=== PATIENT | male | born 1945 | race Caucasian/White ===

== ENCOUNTER → 2020-04-30 | Outpatient (CLI) | payer MEDICARE, OTHER, SELFPAY | END | disposition home or self-care (01) | LOC: MTDU 10:58 | PROVIDERS: PCP Family Medicine; Referring Provider Family Medicine; Visit Provider Family Medicine | DX: R05 Cough (principal); R06.02 Shortness of breath; R19.7 Diarrhea, unspecified; Z20.828 Contact with and (suspected) exposure to other viral communicable diseases | CPT/HCPCS: 87635; C9803; U0003 ==

== ENCOUNTER 2022-08-25 17:11 | Emergency (ER) | payer MEDICARE, OTHER, SELFPAY ==
[2022-08-25 17:13] VITALS: BP 98/59; PULSE 64; RESP 14; TEMP 36.1; O2SAT 95; BMI 28.2
--- NOTE | 2022-08-25 18:25 | EKG12_ITS ---
Test Reason : SYNCOPE Blood Pressure : / mmHG Vent. Rate : 051 BPM Atrial Rate : 051 BPM P-R Int : 156 ms QRS Dur : 088 ms QT Int : 446 ms P-R-T Axes : 050 013 051 degrees QTc Int : 411 ms Sinus bradycardia with sinus arrhythmia Otherwise normal ECG Confirmed by DANGELO BENOIT, VIVIEN ([id number]), scientific publications editor CEDRICK SANTOS ([id number]) on 08/27/2022 6:36:13 AM Referred By: ISAAC Confirmed By:ANTWON PIERSON MD
[2022-08-25 18:36] VITALS: BP 151/129; PULSE 51; RESP 20
[2022-08-25 18:42] VITALS: BP 103/67; BP 122/65; BP 127/58; PULSE 52; PULSE 53; PULSE 63
--- NOTE | 2022-08-25 18:42 | EDS_ITS ---
HPI History of Present Illness Chief Complaint: Syncope Detail of Chief Complaint: Near syncope Informant: patient Onset/Context/Timing Onset: Today Narrative Narrative: Patient presents with a near syncopal episode that occurred a couple hours ago. She states she was in the kitchen when she had gradual onset of lightheadedness and dizziness, felt as if she might pass out. She denies having chest pain or palpitations. She has been on lisinopril for blood pressure control. She recently went from 20 to 30 mg daily for better blood pressure control. In addition to this she is also been having diarrhea and body aches the past 3 days. Patient does bring a log of her blood pressures and pulse rates. It appears that her pulse rate varies between mid 50s and mid 60s. Her systolic blood pressure has been anywhere from 119-150. [facility] Medical History Depression High cholesterol Hypertension Hypothyroidism Allergy/AdvReac Type Severity Reaction Status Date / Time No Known Allergies Allergy Verified 08/25/22 17:13 Social History Smoking Status: Current every day smoker tobacco type: cigarettes ROS ROS ED Constitutional Constitutional ED: Denies chills or fever(s) Eyes Eyes: Denies change in vision or discharge from eye(s) ENT ENT ED: Denies discharge from eye(s), rhinorrhea or sore throat Cardiovascular Cardiovascular: Denies chest pain or palpitations Respiratory/Chest Respiratory/Chest: Denies cough or dyspnea Gastrointestinal Gastrointestinal: Reports diarrhea; Denies abdominal pain, nausea or vomiting Genitourinary Genitourinary ED: Denies dysuria Musculoskeletal Musculoskeletal: Reports myalgias; Denies back pain or extremity pain Integumentary Denies Abrasions or rash Neurologic Neurologic: Reports weakness; Denies headache(s) Psychiatric Psychiatric: Denies anxiety or depression Allergic/Immunologic Allergic/Immunologic ED: Denies lip swelling or urticaria EXAM Physical Exam Const Vital Signs: 08/25/22 17:13 08/25/22 18:36 08/25/22 18:37 Temperature 97 F L Temperature Source Temporal Pulse Rate 64 51 L Pulse Rate [Lying] Pulse Rate [Sitting (for 1 minute prior to obtaining)] Pulse Rate [Standing (for 1 minute prior to obtaining)] Respiratory Rate 14 20 H Respiratory Effort Normal Non-Labored Respiratory Pattern Normal Blood Pressure 98/59 L 151/129 H Blood Pressure [Lying] Blood Pressure [Sitting (for 1 minute prior to obtaining)] Blood Pressure [Standing (for 1 minute prior to obtaining)] Blood Pressure Mean 72 136 Blood Pressure Mean [Lying] Blood Pressure Mean [Sitting (for 1 minute prior to obtaining)] Blood Pressure Mean [Standing (for 1 minute prior to obtaining)] Pulse Ox 95 Oxygen Delivery Method Room Air 08/25/22 18:42 08/25/22 18:57 08/25/22 20:00 Temperature Temperature Source Pulse Rate 57 L Pulse Rate [Lying] 53 L Pulse Rate [Sitting (for 1 minute prior to obtaining)] 52 L Pulse Rate [Standing (for 1 minute prior to obtaining)] 63 Respiratory Rate Respiratory Effort Respiratory Pattern Blood Pressure 125/72 H Blood Pressure [Lying] 122/65 H Blood Pressure [Sitting (for 1 minute prior to obtaining)] 127/58 H Blood Pressure [Standing (for 1 minute prior to obtaining)] 103/67 Blood Pressure Mean 89 Blood Pressure Mean [Lying] 84 Blood Pressure Mean [Sitting (for 1 minute prior to obtaining)] 81 Blood Pressure Mean [Standing (for 1 minute prior to obtaining)] 79 Pulse Ox 97 Oxygen Delivery Method Room Air 08/25/22 21:25 Temperature Temperature Source Pulse Rate 50 L Pulse Rate [Lying] Pulse Rate [Sitting (for 1 minute prior to obtaining)] Pulse Rate [Standing (for 1 minute prior to obtaining)] Respiratory Rate 14 Respiratory Effort Respiratory Pattern Blood Pressure 101/61 Blood Pressure [Lying] Blood Pressure [Sitting (for 1 minute prior to obtaining)] Blood Pressure [Standing (for 1 minute prior to obtaining)] Blood Pressure Mean Blood Pressure Mean [Lying] Blood Pressure Mean [Sitting (for 1 minute prior to obtaining)] Blood Pressure Mean [Standing (for 1 minute prior to obtaining)] Pulse Ox 97 Oxygen Delivery Method Positive well nourished and well developed General Appearance ED: well developed HEENT Reports normocephalic and head/scalp atraumatic Eyes PERRL and EOMs intact bilaterally Neck supple Chest Wall inspection of chest normal and palpation of chest normal Resp normal respiratory effort and clear to auscultation bilaterally Cardio regular rhythm Rate: bradycardia GI normal to inspection, nondistended, normoactive bowel sounds Palpation: soft Extremity normal to inspection Neuro oriented x3 and no sensory deficits noted Neuro Narrative: No focal neurologic deficits. Sensorium / Orientation: alert Motor Exam: strength 5/5 throughout Psych mental status grossly normal Skin no rashes or lesions noted MDM MDM MDM Narrative Medical decision making narrative: Patient given IV fluids. Lab work obtained along with urinalysis. Chest x-ray ordered. Swab for COVID and influenza obtained. Lab Data Attestation: I reviewed the patient's lab results. Labs: Laboratory Results - last 24 hr 08/25/22 08/25/22 08/25/22 18:46 18:50 18:50 WBC 9.6 RBC 5.18 Hgb 16.0 Hct 48.2 MCV 93.1 MCH 30.9 MCHC 33.2 RDW Std Deviation 45.3 H RDW Coeff of Chelle 13.2 Plt Count 250 MPV 9.2 Immature Gran % (Auto) 0.400 Neut % (Auto) 76.8 H Lymph % (Auto) 15.1 L [place] % (Auto) 7.0 Eos % (Auto) 0.5 Baso % (Auto) 0.2 Absolute Neuts (auto) 7.3 Absolute Lymphs (auto) 1.44 Nucleated RBC % 0 Sodium 138 Potassium 4.1 Chloride 104 Carbon Dioxide 30.0 Anion Gap 4 L BUN 35 H Creatinine 1.30 Estim Creat Clear Calc 43.62 Est GFR (MDRD) Af Amer 69 Est GFR (MDRD) Non-Af 57 L BUN/Creatinine Ratio 26.9 H Glucose 122 H Calcium 10.1 Troponin I High Sens 62 Urine Color Urine Clarity Urine pH Ur Specific [place] Urine Protein Urine Glucose (UA) Urine Ketones Urine Occult Blood Urine Nitrite Urine Bilirubin Urine Urobilinogen Ur Leukocyte Esterase Urine RBC Urine WBC Ur Squamous Epith Cells Urine Bacteria Hyaline Casts Urine Mucus POC Glucose 122 H 08/25/22 20:15 WBC RBC Hgb Hct MCV MCH MCHC RDW Std Deviation RDW Coeff of Chelle Plt Count MPV Immature Gran % (Auto) Neut % (Auto) Lymph % (Auto) [place] % (Auto) Eos % (Auto) Baso % (Auto) Absolute Neuts (auto) Absolute Lymphs (auto) Nucleated RBC % Sodium Potassium Chloride Carbon Dioxide Anion Gap BUN Creatinine Estim Creat Clear Calc Est GFR (MDRD) Af Amer Est GFR (MDRD) Non-Af BUN/Creatinine Ratio Glucose Calcium Troponin I High Sens Urine Color Yellow Urine Clarity Clear Urine pH 6.0 Ur Specific [place] 1.015 Urine Protein 30 H Urine Glucose (UA) Normal Urine Ketones Negative Urine Occult Blood Negative Urine Nitrite Negative Urine Bilirubin Negative Urine Urobilinogen Normal Ur Leukocyte Esterase Negative Urine RBC 0 SEEN Urine WBC 0 SEEN Ur Squamous Epith Cells 0-5 SEEN Urine Bacteria 0 SEEN Hyaline Casts 0-5 SEEN Urine Mucus 0 SEEN POC Glucose Radiography Diagnostic Testing: Clinical Impression(s) from Imaging Studies Chest X-Ray 08/25/22 19:15 IMPRESSION: 4 mm nodule in the right lower lobe. Correlation with prior imaging would be helpful if available. Otherwise, please obtain chest CT follow-up. Electronically Signed: Shaheen Martinez MD at 19:38 EST , EKG Initial EKG: Attestation: I personally reviewed and interpreted this EKG as follows: Interpretation: Sinus Bradycardia (Sinus bradycardia 51 bpm with sinus arrhythmia. No acute ischemia.) Treatment and Re-Evaluation Narrative: CBC chemistry studies significant only for slightly elevated BUN at 35. Urinalysis is unremarkable. Chest x-ray per my interpretation reveals no acute findings. Radiology interpretation is reviewed. There is a 4 mm nodule in the left lower lobe. This was discussed with patient she states she has been told about this several years ago. She does voice understanding of need for follow- up. Patient's blood pressures have been stable here now that she has received IV fluids. She was able to get up and ambulate to the restroom and back without difficulty. I believe patient symptoms are likely secondary to low blood pressure from her diarrheal illness as well as adding extra lisinopril to her daily dose. I recommended holding the extra 10 mg of lisinopril until her GI symptoms are resolved and pushing p.o. fluids. Return instructions given. Discharge Plan Triage Chief Complaint: Syncope ED Provider: Kelly Vogel Dx/Rx/DC Orders Clinical Impression: Near syncope, Hypotension, Diarrhea Instructions: ED Hypotension, Orthostatic, ED Near-Fainting, Uncertain Cause Primary Care Provider: Félix Ray Referrals: Félix Ray MD [Primary Care Provider] - 1 Week Disposition Disposition: Home, Self Care Discharge Date/Time: 08/25/22 21:34
[2022-08-25 18:57] VITALS: O2SAT 97
[2022-08-25] MEDS: 0.9% Normal Saline 1,000 ML 1000 ML IV (18:58)
[2022-08-25 19:02] LABS: Absolute Lymphocyte Count 1.44 X10^3/uL (0.83-4.51); Absolute Neutrophil Count 7.3 X10^3/uL (2.0-7.7); Basophil# 0.02 X10^3/uL; Basophil% 0.2 % (0-1); Eosinophil# 0.05 X10^3/uL; Eosinophils% 0.5 % (0-5); Hematocrit 48.2 % (40-54); Lymphocyte # 1.44 X10^3/ul (0.83-4.51); Lymphocyte % 15.1 % (19-41); Mean Corp Hgb Conc 33.2 g/dL (32-36); Mean Corpuscular Hgb 30.9 pg (27.0-32.0); Mean Corpuscular Volume 93.1 fL (80-94); Mean Platelet Vol. 9.2 fl (6.2-12.0); Monocyte# 0.67 X10^3/uL; NRBC Flagged by Analyzer 0 % (0-5); Neutrophil # 7.33 X10^3/uL (2.7-7.7); Neutrophil % 76.8 % (47-70); Platelet Count 250 K/mm3 (150-450); RBC Distribution Width CV 13.2 % (11.6-14.6); RBC Distribution Width SD 45.3 fl (35.1-43.9); Red Blood Count 5.18 M/mm3 (4.6-6.2); White Blood Count 9.6 K/mm3 (4.4-11.0)
[2022-08-25 19:11] LABS: Bedside Glucose 122 mg/dL (74-106)
--- NOTE | 2022-08-25 19:15 | RAD_ITS ---
STUDY: X-RAY CHEST REASON FOR EXAM: Male, 76 years old. cough TECHNIQUE: XR Chest 1 View COMPARISON: None FINDINGS: There is atherosclerotic calcification of the aortic arch with tortuosity. There are diffuse degenerative changes of the visualized thoracic spine. There is degenerative osteoarthritis of the bilateral shoulders. There is no demonstrated pleural abnormality. 4 mm nodule in the right lower lobe. Normal size heart. Normal mediastinum and hubert. Normal visualized pulmonary arteries. There is no demonstrated abnormality of the visualized soft tissue structures of the upper abdomen. RAD/Chest 1 View (Portable) IMPRESSION: 4 mm nodule in the right lower lobe. Correlation with prior imaging would be helpful if available. Otherwise, please obtain chest CT follow-up. Electronically Signed: Shaheen Martinez MD at 19:38 EST ,
[2022-08-25 19:25] LABS: Anion Gap 4 (5-15); BUN 35 mg/dL (7-18); BUN/Creat Ratio 26.9 RATIO (10-20); Calcium,Total 10.1 mg/dL (8.5-10.1); Chloride 104 mmol/L (98-107); EST Glomerular Filtration Rate 57 mL/min (>60); Est Glom Filt Rate - Afr Amer 69 mL/min (>60); Estimated Creatinine Clearance 43.62 ml/min; Glucose 122 mg/dL (74-106); Potassium 4.1 mmol/L (3.5-5.1); Sodium Level 138 mmol/L (136-145); Troponin-I HS 62 pg/mL (3.0-78.0)
[2022-08-25 20:00] VITALS: BP 125/72; PULSE 57
[2022-08-25 20:27] LABS: Bacteria 0 SEEN /hpf (None Seen); Mucous, Urine 0 SEEN /hpf (<or=2+); Red Blood Cells-Urine 0 SEEN /hpf (0-5); White Blood Cells 0 SEEN /hpf (0-5)
[2022-08-25 20:34] LABS: Color, Urine Yellow (Yellow); Glucose, Dipstick Normal (Normal); Ketone-Dipstick Negative (Negative); Leukocyte Esterase-Dipstick Negative /ul (Negative); Nitrite-Dipstick Negative (Negative); Occult Blood-Urine Negative /ul (Negative); Protein-Dipstick 30 mg/dl (Negative); Specific Gravity, Urine 1.015 (1.002-1.030); Urine Bilirubin Dipstick Negative (Negative); Urine Clarity Clear (Clear); Urine Urobilinogen Normal (Normal)
[2022-08-25 20:41] LABS: Hyaline Cast 0-5 SEEN /lpf (0-5)
[2022-08-25] MEDS: 0.9% Normal Saline 1,000 ML 150 ML IV (20:41)
[2022-08-25 20:42] LABS: Squamous Epithelial Cells - UA 0-5 SEEN /hpf (0-5)
[2022-08-25 21:25] VITALS: BP 101/61; PULSE 50; RESP 14; O2SAT 97
== END 2022-08-25 21:34 | disposition home or self-care (01) ==
PROVIDERS: Emergency Provider Emergency Medicine; PCP Family Medicine; Visit Provider Emergency Medicine
DX: R55 Syncope and collapse (principal); I95.9 Hypotension, unspecified; F17.210 Nicotine dependence, cigarettes, uncomplicated; R19.7 Diarrhea, unspecified; E78.00 Pure hypercholesterolemia, unspecified; I10 Essential (primary) hypertension; R42 Dizziness and giddiness
CPT/HCPCS: 71045; 80048; 81001; 82962; 84484; 85025; 87428; 93005; 96360; 96361; 99284; J7030; A4216

== ENCOUNTER 2022-10-07 19:19 | Inpatient (IN) | payer MEDICARE, OTHER, SELFPAY ==
[2022-10-07 19:21] VITALS: BP 131/76; PULSE 60; RESP 14; TEMP 36.1; O2SAT 95; BMI 28.7
--- NOTE | 2022-10-07 20:42 | CT_ITS ---
STUDY: CT BRAIN WITHOUT CONTRAST REASON FOR EXAM: Female, 77 years old. vertigo RADIATION DOSAGE (If Supplied By Facility): CTDIvol = ( 44.99 ) mGy, DLP = ( 779.24 ) mGycm TECHNIQUE: Transaxial CT imaging of the brain was performed without administration of intravenous contrast material. Individualized dose optimization techniques were used for this CT. COMPARISON: No relevant priors. FINDINGS: Normal soft tissue structures. Normal calvarium. Normal size ventricles and extra-axial spaces for the patient''s age. Bilateral white matter microangiopathic ischemic changes of the cerebral hemispheres. Normal basal ganglia and thalami. Normal brainstem. Normal cerebellum. There is no intracranial hemorrhage. There are no findings of an acute ischemic infarction. Normal visualized paranasal sinuses. CT/Brain/Head without Contrast IMPRESSION: Age-related changes of the brain. Electronically Signed: Hernan Leary DO at 21:51 EST ,
--- NOTE | 2022-10-07 20:44 | EX.ED.DYSGE1 ---
HPI History of Present Illness Chief Complaint: Dizziness Narrative Narrative: Patient presents with 4-day history of vertigo and disequilibrium. She feels like if she walks a certain way she will will lean to the right and fall down. She gets worse when she bends down. This is not necessarily worse when she turns her head a certain way. She has no vision changes no weakness. No recent fevers chills. No vision changes or confusion. [facility] Medical History Depression High cholesterol Hypertension Hypothyroidism Home Medications aspirin 81 mg tablet,delayed release 162 mg PO DAILY 10/07/22 [History Last Taken Unknown] atorvastatin 40 mg tablet 40 mg PO DAILY 10/07/22 [History Last Taken Unknown] citalopram 20 mg tablet 20 mg PO DAILY 10/07/22 [History Last Taken Unknown] furosemide 20 mg tablet (Lasix) 20 mg PO DAILY 10/07/22 [History Last Taken Unknown] hydrochlorothiazide 25 mg tablet 25 mg PO DAILY 10/07/22 [History Last Taken Unknown] levothyroxine 25 mcg capsule 25 mcg PO DAILY 10/07/22 [History Last Taken Unknown] lisinopril 10 mg tablet 20 mg PO DAILY 10/07/22 [History Last Taken Unknown] metoprolol tartrate 25 mg tablet 25 mg PO DAILY 10/07/22 [History Last Taken Unknown] Allergy/AdvReac Type Severity Reaction Status Date / Time codeine AdvReac Other Verified 10/07/22 19:21 Social History Smoking Status: Current every day smoker tobacco type: cigarettes ROS ROS ED ROS Narrative Past medical history: Reviewed Medications: Reviewed Social history: Noncontributory Review of systems: All systems negative except as indicated General: No fever Eyes: No visual changes ENT: No upper airway congestion, normal voice Neck: No neck pain Cardiovascular: No chest pain Respiratory: No shortness of breath or cough Gastrointestinal: No abdominal pain, nausea vomiting or diarrhea Genitourinary: No dysuria Musculoskeletal: Denies myalgias no difficulty with ambulation Skin: No rash Neurological: No memory loss, confusion or any focal weakness. Disequilibrium and vertigo as in HPI Psych: No recent behavioral changes Hematologic: No easy bleeding or easy bruising EXAM Physical Exam Narrative Exam Narrative: Physical exam General: Well nourished, Well developed, No Acute Distress Head: Normocephalic, Atraumatic Eyes: Conjunctiva not pale. Pupils are equal and reactive. No saccade. ENT: Moist mucous membranes Neck: Supple, Nontender, No lymphadenopathy Cardiovascular: Regular rate, Regular rhythm Respiratory: No distress, CTA bilaterally Abdomen: Soft, Nontender, Nondistended Back: Nontender, Normal Inspection. Negative for: CVA tenderness Extremities: Nontender, No edema Skin: Normal color, No rash Neurological: Alert, Normal Strength, Normal Sensation. Somewhat abnormal right-sided [id number]. Otherwise normal cerebellar function. Romberg is positive. She could not tolerate ambulating and I did not attempt a gait. Psychological: Normal affect Const Vital Signs: 10/07/22 19:21 10/07/22 21:46 Temperature 97 F L Temperature Source Temporal Pulse Rate 60 54 L Respiratory Rate 14 18 Blood Pressure 131/76 H Blood Pressure Mean 94 Pulse Ox 95 96 Oxygen Delivery Method Room Air Room Air [facility] Lab Data Labs: Laboratory Results - last 24 hr 10/07/22 10/07/22 10/07/22 19:59 19:59 19:59 WBC 7.7 RBC 4.84 Hgb 15.0 Hct 44.9 MCV 92.8 MCH 31.0 MCHC 33.4 RDW Std Deviation 45.5 H RDW Coeff of Chelle 13.4 Plt Count 211 MPV 9.2 Immature Gran % (Auto) 0.300 Neut % (Auto) 72.6 H Lymph % (Auto) 17.7 L [place] % (Auto) 7.8 Eos % (Auto) 1.3 Baso % (Auto) 0.3 Absolute Neuts (auto) 5.6 Absolute Lymphs (auto) 1.37 Nucleated RBC % 0 PT 14.1 INR 1.1 Sodium 141 Potassium 3.6 Chloride 104 Carbon Dioxide 29.0 Anion Gap 8 BUN 23 H Creatinine 0.89 Estim Creat Clear Calc 49.56 Est GFR (MDRD) Af Amer 80 Est GFR (MDRD) Non-Af 66 BUN/Creatinine Ratio 26.0 H Glucose 122 H Calcium 9.8 Total Bilirubin 0.70 AST 17 ALT 17 Alkaline Phosphatase 85 Troponin I High Sens 24 Total Protein 6.7 Albumin 3.5 Globulin 3.2 Albumin/Globulin Ratio 1.1 Urine Color Urine Clarity Urine pH Ur Specific [place] Urine Protein Urine Glucose (UA) Urine Ketones Urine Occult Blood Urine Nitrite Urine Bilirubin Urine Urobilinogen Ur Leukocyte Esterase Urine RBC Urine WBC Ur Squamous Epith Cells Urine Bacteria Urine Mucus 10/07/22 21:16 WBC RBC Hgb Hct MCV MCH MCHC RDW Std Deviation RDW Coeff of Chelle Plt Count MPV Immature Gran % (Auto) Neut % (Auto) Lymph % (Auto) [place] % (Auto) Eos % (Auto) Baso % (Auto) Absolute Neuts (auto) Absolute Lymphs (auto) Nucleated RBC % PT INR Sodium Potassium Chloride Carbon Dioxide Anion Gap BUN Creatinine Estim Creat Clear Calc Est GFR (MDRD) Af Amer Est GFR (MDRD) Non-Af BUN/Creatinine Ratio Glucose Calcium Total Bilirubin AST ALT Alkaline Phosphatase Troponin I High Sens Total Protein Albumin Globulin Albumin/Globulin Ratio Urine Color Yellow Urine Clarity Clear Urine pH 6.0 Ur Specific [place] 1.015 Urine Protein 15 H Urine Glucose (UA) Normal Urine Ketones Negative Urine Occult Blood Negative Urine Nitrite Negative Urine Bilirubin Negative Urine Urobilinogen 1 H Ur Leukocyte Esterase 25 H Urine RBC 0 SEEN Urine WBC 0-5 SEEN Ur Squamous Epith Cells 0-5 SEEN Urine Bacteria 1+ Urine Mucus 0 SEEN Radiography Diagnostic Testing: Clinical Impression(s) from Imaging Studies Brain CT 10/07/22 20:42 IMPRESSION: Age-related changes of the brain. Electronically Signed: Hernan Leary DO at 21:51 EST Reading Location ID and State: [facility] / [place] Tel [phone], Service support , Chest X-Ray 10/07/22 21:27 IMPRESSION: No radiographic evidence of acute cardiopulmonary disease. Electronically Signed: Hernan Leary DO at 21:55 EST , Chest x-ray read by me as normal EKG Initial EKG: Comments: Sinus rhythm with a rate of 55. Normal AL and QTc intervals. No ischemic changes acutely. Interpreted by emergency doctor Treatment and Re-Evaluation Narrative: A. Problems addressed Patient has vertigo. I am worried about a central etiology for her vertigo especially that she has a positive Romberg and she seems to be leaning to the right and slightly abnormal cerebellar function. Her work-up here is unremarkable but will need an inpatient work-up. B. Amount and/or complexity of the data (2 out of 3) 1. CBC, CMP, troponin interpreted by me I talked to the daughter who was in the room 2. Independent interpretation of test Telemetry: Sinus rhythm with a rate of 53 without any ectopy 3. I discussed the patient with hospitalist for admission C. Risk of complications and/or morbidity Differential diagnosis: Central vertigo, peripheral vertigo, disequilibrium, electrolyte abnormalities, medications. None of these are found Discharge Plan Triage Chief Complaint: Dizziness ED Provider: Brad Gallo Dx/Rx/DC Orders Clinical Impression: Vertigo, History of hypertension, Hx of hypercholesterolemia Prescriptions: No Action atorvastatin 40 mg Tablet 40 mg PO DAILY citalopram 20 mg Tablet 20 mg PO DAILY lisinopril 10 mg Tablet 20 mg PO DAILY hydrochlorothiazide 25 mg Tablet 25 mg PO DAILY furosemide [Lasix] 20 mg Tablet 20 mg PO DAILY metoprolol tartrate 25 mg Tablet 25 mg PO DAILY levothyroxine 25 mcg Capsule 25 mcg PO DAILY aspirin [Aspir-81] 81 mg Tablet,Delayed Release (Dr/Ec) 162 mg PO DAILY Primary Care Provider: Félix Ray Referrals: Félix Ray MD [Primary Care Provider] - Disposition Disposition: Acute Care Hospital [facility]
[2022-10-07 20:52] LABS: Absolute Lymphocyte Count 1.37 X10^3/uL (0.83-4.51); Absolute Neutrophil Count 5.6 X10^3/uL (2.0-7.7); Basophil# 0.02 X10^3/uL; Basophil% 0.3 % (0-1); Eosinophils% 1.3 % (0-5); Hematocrit 44.9 % (37-47); Lymphocyte # 1.37 X10^3/ul (0.83-4.51); Lymphocyte % 17.7 % (19-41); Mean Corp Hgb Conc 33.4 g/dL (32-36); Mean Corpuscular Volume 92.8 fL (81-99); Mean Platelet Vol. 9.2 fl (6.2-12.0); Monocyte% 7.8 % (0-10); NRBC Flagged by Analyzer 0 % (0-5); Neutrophil # 5.63 X10^3/uL (2.7-7.7); Neutrophil % 72.6 % (47-70); Platelet Count 211 K/mm3 (150-450); RBC Distribution Width CV 13.4 % (11.6-14.6); RBC Distribution Width SD 45.5 fl (35.1-43.9); Red Blood Count 4.84 M/mm3 (4.2-5.4); White Blood Count 7.7 K/mm3 (4.4-11.0)
[2022-10-07 21:01] LABS: International Normalized Ratio 1.1; Prothrombin Time (Protime)PT. 14.1 SECONDS (11.7-14.9)
[2022-10-07] MEDS: Meclizine HCl 25 MG Tablet PO (21:01)
[2022-10-07 21:09] LABS: ALB/GLOB Ratio 1.1 RATIO (0.9-2.4); AST(SGOT) 17 U/L (15-37); Alanine Aminotransfer ALT/SGPT 17 U/L (13-56); Albumin, Serum 3.5 g/dL (3.2-5.0); Alkaline Phosphatase 85 U/L (45-117); Anion Gap 8 (5-15); BUN 23 mg/dL (7-18); Calcium,Total 9.8 mg/dL (8.5-10.1); Chloride 104 mmol/L (98-107); Creatinine, Serum 0.89 mg/dL (0.55-1.02); EST Glomerular Filtration Rate 66 mL/min (>60); Est Glom Filt Rate - Afr Amer 80 mL/min (>60); Estimated Creatinine Clearance 49.56 ml/min; Globulin 3.2 g/dL (2.2-4.2); Glucose 122 mg/dL (74-106); Potassium 3.6 mmol/L (3.5-5.1); Protein, Total 6.7 g/dL (6.4-8.2); Sodium Level 141 mmol/L (136-145); Troponin-I HS 24 pg/mL (3.0-54.0)
[2022-10-07 21:24] LABS: Mucous, Urine 0 SEEN /hpf (<or=2+); Red Blood Cells-Urine 0 SEEN /hpf (0-5)
--- NOTE | 2022-10-07 21:27 | RAD_ITS ---
INDICATION: weakness EXAMINATION/TECHNIQUE: X-RAY - XR Chest 1 View COMPARISON: August 25, 2022. FINDINGS: LINES/DEVICES: None. LUNGS: No consolidation, edema or effusion. No pneumothorax. MEDIASTINUM AND CARDIOVASCULAR STRUCTURES: Cardiac silhouette not enlarged. Central airways and mediastinal contour are unremarkable. BONES AND SOFT TISSUES: Degenerative vertebral changes. RAD/Chest 1 View (Portable) IMPRESSION: No radiographic evidence of acute cardiopulmonary disease. Electronically Signed: Hernan Leary DO at 21:55 EST ,
[2022-10-07 21:37] LABS: Color, Urine Yellow (Yellow); Glucose, Dipstick Normal (Normal); Ketone-Dipstick Negative (Negative); Leukocyte Esterase-Dipstick 25 /ul (Negative); Nitrite-Dipstick Negative (Negative); Occult Blood-Urine Negative /ul (Negative); Protein-Dipstick 15 mg/dl (Negative); Specific Gravity, Urine 1.015 (1.002-1.030); Urine Bilirubin Dipstick Negative (Negative); Urine Clarity Clear (Clear); Urine Urobilinogen 1 mg/dl (Normal)
[2022-10-07 21:45] LABS: Bacteria 1+ /hpf (None Seen); Squamous Epithelial Cells - UA 0-5 SEEN /hpf (5-10); White Blood Cells 0-5 SEEN /hpf (0-5)
[2022-10-07 21:46] VITALS: PULSE 54; RESP 18; O2SAT 96
[2022-10-07 22:29] VITALS: BP 156/89; PULSE 55; RESP 15; TEMP 36.7; O2SAT 94
[2022-10-08] VITALS (8 sets, daily range): BP systolic 110–149; BP diastolic 49–77; PULSE 52–65; RESP 16–18; TEMP 36.6–37.3; O2SAT 93–94; BMI 28.4
--- NOTE | 2022-10-08 03:29 | MRI_ITS ---
HISTORY: vertigo r/o CVA or other etiology. TECHNIQUE: Multiplanar and multisequence MR images of the brain were obtained before and after the intravenous administration of 15 cc Clariscan. 352 images. COMPARISON: CT prior day. FINDINGS: Motion artifact lowers the sensitivity of the examination. BRAIN PARENCHYMA: Moderate foci and small zones of increased T2 FLAIR signal in the bilateral cerebral white matter and peter. No enhancing lesion in the brain parenchyma. No abnormal focus of restricted diffusion. No acute intracranial hemorrhage identified. CSF SPACES: Mild generalized volume loss. No significant midline shift or other mass effect.No extra-axial fluid collection. VASCULAR SYSTEM: Major intracranial flow voids are maintained. PARANASAL SINUSES AND MASTOID AIR CELLS: No significant air fluid levels. ORBITS: Bilateral lens resections. MRI/Brain W/WO Contrast IMPRESSION: Motion artifact. No evidence for enhancing intracranial mass, acute infarct, or other acute abnormality. Chronic involutional and white matter changes. Electronically Signed: Stephanie Morgan MD at 10:19 EST ,
--- NOTE | 2022-10-08 03:29 | PCM.HP.STD ---
HPI - General General Date of Admission: 10/07/22 Date of Service: 10/07/22 Chief Complaint: Vertigo HPI Narrative BARBARA MI, is a 77 F with a history of hypothyroidism and hypertension who presented to [facility] 10/07 with a 4-day history of vertigo. In the ED lab work-up overall unremarkable however she was noted to have a positive Romberg and was unable to walk given her symptoms that would become somewhat debilitating when she would get up and try to walk. Hospitalist contacted for admission. Evaluated with her and family at bedside. She reports that on Tuesday she woke up and had been having episodes where she would suddenly have the room spinning around her and she began to fall to her right, they lasted variable amounts of time and sometimes would happen when she was sitting down, did not feel lightheaded as well during this times and said it was a different sensation than not. Did not only happen when moving head. Did fall twice over the past week and denies any serious injury, did hit her head on a vacuum 2 days ago and also bruised her tailbone. Has a slight lower occipital headache that she attributes to stress. Denies changes in her vision, no unilateral or new type of headache, no hearing changes, no chest pain or shortness of breath. She noted that symptoms had become more mild over the past 2 days until the evening of presentation when she had a severe episode that caused significant nausea and small emesis. When she had that episode of vomiting she did have some pain that felt like it went from near her chest to her stomach but it resolved after the vomiting resolved and she had no further sensations like that and has no present chest pain. At this time she reports she feels fine when sitting in bed and is only when she stands up that she has debilitating symptoms. Denied any other complaints at this time. When discussing if this is ever happened to her prior to Tuesday she did note that 9 months ago she had several episodes that would last roughly 10 minutes but would go away and were not as severe or as frequent at this time and has not had difficulty in recent months. [facility] Medical History (Updated 10/08/22 @ 03:[address] Maki Anderson MD) Carpal tunnel syndrome on right Depression High cholesterol Hypertension Hypothyroidism Home Medications aspirin 81 mg tablet,delayed release 162 mg PO DAILY Check with primary doctor 10/07/22 [History Last Taken 10/07/22] atorvastatin 40 mg tablet 40 mg PO DAILY Check with primary doctor 10/07/22 [History Last Taken 10/07/22] citalopram 20 mg tablet 20 mg PO DAILY Check with primary doctor 10/07/22 [History Last Taken 10/07/22] furosemide 20 mg tablet (Lasix) 20 mg PO DAILY 10/07/22 [History Last Taken Unknown] hydrochlorothiazide 25 mg tablet 25 mg PO DAILY Check with primary doctor 10/07/22 [History Last Taken 10/07/22] levothyroxine 25 mcg capsule 25 mcg PO DAILY Check with primary doctor 10/07/22 [History Last Taken 10/07/22] lisinopril 10 mg tablet 20 mg PO DAILY Check with primary doctor 10/07/22 [History Last Taken 10/07/22] metoprolol tartrate 25 mg tablet 25 mg PO BID Check with primary doctor 10/07/22 [History Last Taken 10/07/22] Allergy/AdvReac Type Severity Reaction Status Date / Time codeine AdvReac Other Verified 10/07/22 19:21 Social History Smoking Status: Current every day smoker tobacco type: cigarettes ROS ROS Narrative General: Denies fever or chills, denies weight change HENT: Slight lower occipital headache that she contributes to her stress, denies stuffy nose, denies sore throat EYES: Denies changes in vision Resp: Denies cough, denies shortness of breath Cardiac: Denies chest pain GI: Denies abdominal pain, denies changes in bowel, positive nausea with small-volume emesis earlier today but presently not having this : Denies changes in urination Extremity: Denies swelling MSK: Denies weakness Neuro: Has some numbness chronically in a radial distribution on her left hand and has had carpal tunnel surgery, has vertigo symptoms as above Heme: Denies any bleeding, reports her tailbone is somewhat bruised Skin: Has scalp psoriasis Psychiatric: No complaints voiced Vital Signs Vital Signs Vital Signs: 10/07/22 19:21 10/07/22 21:46 10/07/22 22:29 Temperature 97 F L 98.0 F Temperature Source Temporal Temporal Pulse Rate 60 54 L 55 L Respiratory Rate 14 18 15 Respiratory Effort Respiratory Depth Respiratory Pattern Blood Pressure 131/76 H 156/89 H Blood Pressure Mean 94 111 Blood Pressure Source Blood Pressure Position Blood Pressure Location Pulse Ox 95 96 94 Oxygen Delivery Method Room Air Room Air Room Air 10/08/22 01:59 10/08/22 02:04 Temperature 97.8 F Temperature Source Oral Pulse Rate 65 Respiratory Rate 18 Respiratory Effort Normal Non-Labored Respiratory Depth Normal Respiratory Pattern Normal Blood Pressure 149/74 H Blood Pressure Mean 99 Blood Pressure Source Monitor Blood Pressure Position Semi-Fowlers Blood Pressure Location Right Arm Pulse Ox 94 Oxygen Delivery Method Room Air Room Air Weight Weight: 79.878 kg Body Mass Index (BMI) 28.4 Physical Exam Narrative General: Alert, oriented, no apparent distress HEENT: Atraumatic, normocephalic, did have some wax partially obstructing ear canal on left side, right side with less wax burden Eyes: Anicteric, normal conjunctiva, pupils equal, extraocular movements intact with several beats of nystagmus on far lateral gaze bilaterally but no rotational or vertical nystagmus appreciated Neck: Supple Respiratory: Clear to auscultation bilaterally, normal respiratory effort Cardiovascular: Regular rate and rhythm GI: Soft, nontender, nondistended Extremities: No edema Musculoskeletal: Moving all extremities Neuro: No sustained nystagmus, was able to perform [id number] without significant difficulty Skin: No rashes appreciated Psych: Cooperative Results Lab / Micro Data Result Diagrams: 10/07/22 19:59 10/07/22 19:59 Labs: Laboratory Results - last 24 hr 10/07/22 19:59: WBC 7.7, RBC 4.84, Hgb 15.0, Hct 44.9, MCV 92.8, MCH 31.0, MCHC 33.4, RDW Std Deviation 45.5 H, RDW Coeff of Chelle 13.4, Plt Count 211, MPV 9.2, Immature Gran % (Auto) 0.300, Neut % (Auto) 72.6 H, Lymph % (Auto) 17.7 L, [place] % (Auto) 7.8, Eos % (Auto) 1.3, Baso % (Auto) 0.3, Absolute Neuts (auto) 5.6, Absolute Lymphs (auto) 1.37, Nucleated RBC % 0 10/07/22 19:59: PT 14.1, INR 1.1 10/07/22 19:59: Sodium 141, Potassium 3.6, Chloride 104, Carbon Dioxide 29.0, Anion Gap 8, BUN 23 H, Creatinine 0.89, Estim Creat Clear Calc 49.56, Est GFR (MDRD) Af Amer 80, Est GFR (MDRD) Non-Af 66, BUN/Creatinine Ratio 26.0 H, Glucose 122 H, Calcium 9.8, Total Bilirubin 0.70, AST 17, ALT 17, Alkaline Phosphatase 85, Troponin I High Sens 24, Total Protein 6.7, Albumin 3.5, Globulin 3.2, Albumin/Globulin Ratio 1.1 10/07/22 21:16: Urine Color Yellow, Urine Clarity Clear, Urine pH 6.0, Ur Specific [place] 1.015, Urine Protein 15 H, Urine Glucose (UA) Normal, Urine Ketones Negative, Urine Occult Blood Negative, Urine Nitrite Negative, Urine Bilirubin Negative, Urine Urobilinogen 1 H, Ur Leukocyte Esterase 25 H, Urine RBC 0 SEEN, Urine WBC 0-5 SEEN, Ur Squamous Epith Cells 0-5 SEEN, Urine Bacteria 1+, Urine Mucus 0 SEEN Radiology Impression Brain CT 10/07/22 20:42 IMPRESSION: Age-related changes of the brain. Electronically Signed: Hernan Leary DO at 21:51 EST , Chest X-Ray 10/07/22 21:27 IMPRESSION: No radiographic evidence of acute cardiopulmonary disease. Electronically Signed: Hernan Leary DO at 21:55 EST , Assessment & Plan Assessment/Plan (1) Vertigo: (2) History of hypertension: (3) Hypothyroidism: (4) Depression: PLAN: Plan #Vertigo Likely peripheral but given change in symptoms suddenly in severity will obtain MRI to further evaluate CT on arrival only showed age-related changes Zofran and meclizine as needed May need vestibular rehab as outpatient PT/OT consulted MRI ordered and given significant anxiety and claustrophobia Ativan ordered for pretreatment Given her intermittent nausea with these episodes we will hold on her Lasix and hydrochlorothiazide but will continue her Synthroid and lisinopril Did have some wax in left ear though not completely obstructive, will order Debrox Gives history very consistent with vertigo and does not have lightheadedness or symptoms consistent with orthostatic or vasovagal, will not pursue vertigo work-up at this time #Tobacco use Smokes 5 cigarettes a day, declined nicotine patch Advise cessation #Anxiety On Celexa at home chronically, given QTc prolongation risk and addition of Zofran as needed a.m. Celexa held pending EKG to evaluate QTc which will be done this a.m. If QTc not prolonged would resume Celexa #DVT ppx: Marie Anderson MD Time spent in the patient's overall evaluation,decision-making process, review of diagnostic data, adjustment of management, discussion with other providers, nursing nursing and ancillary staff involved in patient's care documentation, 60 minutes Charges/Coding Visit Charges Inpatient E&M: 64625 Init Hosp L2
[2022-10-08] MEDS: Meclizine 12.5 MG Tablet PO (04:08)
[2022-10-08] MEDS: Levothyroxine 25 MCG TABLET PO (04:33)
[2022-10-08] MEDS: Carbamide Peroxide 15 ML Bottle 5 DRP OTIC (04:34)
[2022-10-08 06:38] LABS: Absolute Lymphocyte Count 2.21 X10^3/uL (0.83-4.51); Basophil# 0.03 X10^3/uL; Basophil% 0.4 % (0-1); Eosinophil# 0.12 X10^3/uL; Eosinophils% 1.7 % (0-5); Hematocrit 42.3 % (37-47); Hemoglobin 14.3 g/dL (12.0-15.0); Lymphocyte # 2.21 X10^3/ul (0.83-4.51); Lymphocyte % 31.3 % (19-41); Mean Corp Hgb Conc 33.8 g/dL (32-36); Mean Corpuscular Hgb 31.6 pg (27.0-32.0); Mean Corpuscular Volume 93.4 fL (81-99); Mean Platelet Vol. 8.9 fl (6.2-12.0); Monocyte# 0.66 X10^3/uL; Monocyte% 9.3 % (0-10); NRBC Flagged by Analyzer 0 % (0-5); Neutrophil # 4.03 X10^3/uL (2.7-7.7); Neutrophil % 57.2 % (47-70); Platelet Count 210 K/mm3 (150-450); RBC Distribution Width CV 13.3 % (11.6-14.6); RBC Distribution Width SD 45.4 fl (35.1-43.9); Red Blood Count 4.53 M/mm3 (4.2-5.4); White Blood Count 7.1 K/mm3 (4.4-11.0)
[2022-10-08 07:23] LABS: AST(SGOT) 17 U/L (15-37); Alanine Aminotransfer ALT/SGPT 17 U/L (13-56); Alkaline Phosphatase 85 U/L (45-117); Anion Gap 6 (5-15); BUN 23 mg/dL (7-18); BUN/Creat Ratio 25.8 RATIO (10-20); Calcium,Total 9.5 mg/dL (8.5-10.1); Chloride 105 mmol/L (98-107); Creatinine, Serum 0.89 mg/dL (0.55-1.02); EST Glomerular Filtration Rate 65 mL/min (>60); Est Glom Filt Rate - Afr Amer 79 mL/min (>60); Estimated Creatinine Clearance 49.56 ml/min; Globulin 3.1 g/dL (2.2-4.2); Glucose 112 mg/dL (74-106); Potassium 3.3 mmol/L (3.5-5.1); Protein, Total 6.1 g/dL (6.4-8.2); Sodium Level 140 mmol/L (136-145); Thyroid Stim Hormone (TSH) 2.16 uIU/mL (0.358-3.74)
--- NOTE | 2022-10-08 07:46 | PCM.HOSP.N ---
Hospitalist Note Patient was admitted with 4-day history of vertigo, disequilibrium worse on bending with positive Romberg sign. When she walks shows leaning to the right and fall. No recent change in weakness Patient had MRI in the morning and had IV Ativan. She is still asleep and groggy. When I saw the patient her symptoms of vertigo is much improved. MRI brain reported no evidence of acute infarct or acute abnormality. Clinical Impression(s) from Imaging Studies Brain CT 10/07/22 20:42 IMPRESSION: Age-related changes of the brain. Brain MRI 10/08/22 03:29 IMPRESSION: Motion artifact. No evidence for enhancing intracranial mass, acute infarct, or other acute abnormality. Chronic involutional and white matter changes. Electronically Signed: Stephanie Morgan MD at 10:19 EST ,
[2022-10-08] MEDS: Aspirin E.C. 81 MG Tablet 162 MG PO (08:27)
[2022-10-08] MEDS: LORazepam 1 MG Tablet PO (08:27)
[2022-10-08] MEDS: Potassium Chloride Oral Tablet 20 MEQ 40 MEQ PO ×2 (11:00→14:00)
[2022-10-08] MEDS: Metoprolol Tartrate 25 MG Tablet PO (11:17)
[2022-10-08] MEDS: Enoxaparin 40 MG/0.4 ML Syringe SC (11:17)
[2022-10-08] MEDS: Lisinopril 20 MG Tablet PO (11:17)
[2022-10-08] MEDS: 0.9% Saline Lock 10 ML Syringe IV (11:21)
[2022-10-08 12:12] LABS: Phosphorus 3.2 mg/dL (2.5-4.9)
--- NOTE | 2022-10-08 12:30 | CASEMGMT ---
RN?CM?CLEANING SPECIALIST?CM?to room to meet with patient for initial transition planning/care coordination?assessment.?RN?CM?introduced self and role at [facility].? Pt resting in bed in no distress at this time w/eyes closed. She did acknowledge RN CM but kept eyes closed. Pt started answering questions, but then kept falling asleep. Pt's dtr and son-in-law then walked in room. Introduced self and role. The following information obtained from Viri hyde. Care providers, pharmacy, and demographics verified/updated at this time. PCP: Dr Ray Specialists: ortho surgeon in [place]--dtr does not remember name Preferred Pharmacy: [facility] retail Insurance:[facility], MMO Prescription Benefit:?Yes Living Will/HPOA:?Pt does not currently have LW/HCPOA. Dtr states pt was saying last night that she would like to complete these. SWNicole, made aware. Dtr made aware pt would need to be alert/oriented to complete these and made aware if SW unable to meet w/her prior to discharge, these can be completed as an OP. She voices appreciation. LNOK: Viri Hyde. Pt also has a son. Living Arrangements: Lives w/dtr and son-in-law in one-story home w/basement w/2 steps to enter. Pt goes to the basement occasionally. Indep w/ADL's, IADL's, and manages her own medications.. Family supportive and able to assist if needed. Transportation:?Pt and family DME: Has grab bars. Uses no other DME. Dtr denies having any DME at this time. Will await therapy eval and follow if any recommendations made. HHC/SNF: No hx of either. Dtr states, if OP therapy is recommended, pt would most likely go to [facility] for this. PLAN:??TBD PT/OT evals pending. Nadia BSN?RN?CM
--- NOTE | 2022-10-08 13:17 | DCINST_ITS ---
Discharge Instructions Diet Discharge Diet: Low fat / Low cholesterol Activity Discharge Activity: Return to Normal Activity Weight Bearing Status: Weight bearing as tolerated Dressing / Incision Call your doctor if you observe: Fever of 101 or Higher, Coldness, Increased Pain, Numbness or Tingling, Change in Color, Inability to urinate, Inability to have a bowel movement, Using more than 1 pad per hour, Shortness of breath, Dizziness, Fainting spells, Swelling in the ankles, Chest pain, Prolonged hiccupping, Increased palpitations (irregular heartbeat) and Calf discomfort Follow Up Care When: IN 2 WEEKS Test Results: Test results from this visit will be discussed in further detail at your follow- up appointment, if applicable. Discharge Plan Admission Admit Date/Time: 10/07/22 23:14 Primary Reason for Your Visit: vertigo Attending Provider: Abner Tipton Primary Care Provider: Félix Ray Consulting Providers: Maki Anderson Discharge Orders/Prescriptions Prescriptions: No Action atorvastatin 40 mg Tablet 40 mg PO DAILY citalopram 20 mg Tablet 20 mg PO DAILY lisinopril 10 mg Tablet 20 mg PO DAILY hydrochlorothiazide 25 mg Tablet 25 mg PO DAILY furosemide [Lasix] 20 mg Tablet 20 mg PO DAILY metoprolol tartrate 25 mg Tablet 25 mg PO BID levothyroxine 25 mcg Capsule 25 mcg PO DAILY aspirin [Aspir-81] 81 mg Tablet,Delayed Release (Dr/Ec) 162 mg PO DAILY Referrals / Follow Up: Félix Ray MD [Primary Care Provider] -
--- NOTE | 2022-10-08 15:00 | CASEMGMT ---
Social Work SW received referral from RNCM for advance directives. SW met with pt and dgt. Pt too groggy from procedure to discuss at this time. GREG provided Advance Directive Rack Card to pt dgt with information that pt can make an appointment to follow up as outpatient when she is able. LAYO Cisneros
--- NOTE | 2022-10-08 16:36 | CASEMGMT ---
Addendum entered by Brandon Mcfarland 10/08/22 17:18: Therapy has worked w/pt and recommended OP therapy/vestibular. Script received from Dr Tipton, faxed to [facility] per dtr's request, and script given to daughter. Therapy states no recommendations for DME. Original Note: ALEXANDRA CLEANING NOTE: Pt is awake now and feels up to being able to work w/therapy. Call to [facility], and she was made aware. Dtr @ bedside and states pt's symptoms worsen @ night and they feel it would be best for pt to stay overnight for further observation. Dr Tipton made aware and states will not be discharging pt tonight. PT/OT evals pending. Nadia CRAWFORD RN CM
[2022-10-08] MEDS: Atorvastatin Calcium 40 MG Tablet PO (20:02)
[2022-10-09 02:02] VITALS: BP 109/47; PULSE 60; RESP 17; TEMP 37.1; O2SAT 95
[2022-10-09] MEDS: Levothyroxine 25 MCG TABLET PO (05:24)
[2022-10-09 08:02] VITALS: BP 141/74; PULSE 74; RESP 18; TEMP 36.9; O2SAT 96
[2022-10-09 08:27] VITALS: BP 141/74; PULSE 67
[2022-10-09] MEDS: Lisinopril 20 MG Tablet PO (08:27)
[2022-10-09] MEDS: Metoprolol Tartrate 25 MG Tablet PO (08:27)
[2022-10-09] MEDS: Aspirin E.C. 81 MG Tablet 162 MG PO (08:28)
--- NOTE | 2022-10-09 11:43 | PCM.DC.SUM ---
Providers Date of Admission: 10/07/22 Date of Discharge: 10/09/22 Primary Care Physician: Dr. Félix Ray MD Reason For Visit: VERTIGO Diagnosis Discharge Diagnosis (1) Vertigo: Status: Acute Code(s): R42 - Dizziness and giddiness (2) History of hypertension: Status: Acute Code(s): Z86.79 - Personal history of other diseases of the circulatory system (3) Hypothyroidism: Status: Acute Code(s): E03.9 - Hypothyroidism, unspecified (4) Depression: Status: Acute Code(s): F32.A - Depression, unspecified Medications at Discharge Home Medications aspirin 81 mg tablet,delayed release 162 mg PO DAILY Check with primary doctor 10/07/22 atorvastatin 40 mg tablet 40 mg PO DAILY Check with primary doctor 10/07/22 citalopram 20 mg tablet 20 mg PO DAILY Check with primary doctor 10/07/22 furosemide 20 mg tablet (Lasix) 20 mg PO DAILY 10/07/22 levothyroxine 25 mcg capsule 25 mcg PO DAILY Check with primary doctor 10/07/22 lisinopril 10 mg tablet 20 mg PO DAILY Check with primary doctor 10/07/22 metoprolol tartrate 25 mg tablet 25 mg PO BID Check with primary doctor 10/07/22 meclizine 12.5 mg tablet 12.5 mg PO TID PRN PRN dizziness or vertigo #21 tabs 10/09/22 Hospital Course Operations None Procedures - (MRI brain) Summary of Care Provided Minutes Spent on Discharge: 29 Hospital Course: Mrs. Santos is a 77-year-old white female who presented to the emergency department on 10/07/2022 with a 4-day history of vertigo. Initial work-up in the emergency department was unremarkable however the patient did have a positive Romberg and was unable to walk secondary to her symptoms. She has had this before but it had never lasted as long. The patient reported on Tuesday prior to presentation she woke up and had been having episodes where she was suddenly have the room spinning around her and began to fall to her right. They were lasting variable amounts of times. She denied any lightheadedness during these episodes. It did not only happen when she was moving her head. She had fallen twice in the week prior to presentation but had no serious injuries. She denied any changes in her vision or any unilateral symptoms. Her symptoms had been improving however just prior to presentation she had a severe episode that caused significant nausea and vomiting. She was admitted the medical floor and an MRI was obtained to rule out posterior circulation stroke. She required Ativan IV prior to the MRI. MRI was negative for any acute abnormality. Her vertigo was resolved however she was too sleepy and kept overnight until her mentation could improve. I evaluated the patient on 10/09/2022 and her symptoms were completely resolved. She only reported some fatigue as she did not sleep well the night previously. The etiology is overall unclear however central causes have been ruled out at this time. I have suggested she follow-up with physical therapy and did write a prescription for this for vestibular rehab and possible ENT follow-up as well. He was noted to be both on Lasix daily and hydrochlorothiazide daily for her blood pressure. I discontinued her hydrochlorothiazide on discharge and she will remain on her Lasix. She is to follow-up with her primary care physician within the next week. I did give her a prescription for Antivert in case she has any further symptoms. Discharge diagnoses: Vertigo-resolved Hyperlipidemia Hypertension Hypothyroidism Depression Physical Exam Narrative Patient denies any current vertigo or dizziness and states she has been able to move without any issues. Reports poor sleep overnight. Const alert, oriented x3 and no apparent distress Constitutional Narrative: Older white female lying in bed, appears well, nontoxic General Appearance: cooperative, comfortable, well kempt and well developed Orientation / Consciousness: awake, oriented to person, oriented to place and oriented to time Exam Limitations: no limitations Nutritional Appearance: overweight HEENT normocephalic, head/scalp atraumatic, hearing grossly normal bilaterally and moist oral mucous membranes Resp normal respiratory effort, no retractions, no use of accessory muscles and clear to auscultation bilaterally Auscultation: Negative for rales, rhonchi or wheezes Cardio regular rate, regular rhythm, S1 normal heart sound, S2 normal heart sound, no murmurs, no rub, no gallops, no clicks and no JVD GI normal to inspection, nondistended, normoactive bowel sounds, soft to palpation and non-tender Extremity no clubbing, cyanosis or edema Extremity Narrative: 2+ pedal pulses Neuro oriented x3, CN's II-XII intact bilaterally, moves all extremities and no focal motor deficits Speech: speech normal Psych affect normal Psych Narrative: Patient is pleasant and appropriately interactive Weight / BMI Weight Weight: 79.878 kg Body Mass Index (BMI) 28.4 ABG / Lab / Microbiology Data Result Diagrams: 10/08/22 06:10 10/08/22 06:10 Laboratory: Laboratory Results - last 24 hr 10/08/22 06:10: Phosphorus 3.2, Magnesium 2.0 D/C Instructions Discharge Diet: Low fat / Low cholesterol Discharge Activity: Return to Normal Activity Meaningful Use Info Meaningful Use Diagnoses (Choose all that apply): None applicable Discharge Plan Admission Admit Date/Time: 10/07/22 23:14 Primary Reason for Your Visit: vertigo Attending Provider: Annelise Kumar Primary Care Provider: Félix Ray Consulting Providers: Maki Anderson ; Abner Tipton Instructions Additional Instructions / Restrictions: 1. Follow-up with outpatient physical therapy for vertigo if this does not help your symptoms consider follow-up with ear nose and throat physician Discharge Orders/Prescriptions Prescriptions: New meclizine 12.5 mg Tablet 12.5 mg PO TID PRN PRN (Reason: dizziness or vertigo) Qty: 21 0RF Continued citalopram 20 mg Tablet 20 mg PO DAILY lisinopril 10 mg Tablet 20 mg PO DAILY furosemide [Lasix] 20 mg Tablet 20 mg PO DAILY metoprolol tartrate 25 mg Tablet 25 mg PO BID Discontinued hydrochlorothiazide 25 mg Tablet 25 mg PO DAILY No Action atorvastatin 40 mg Tablet 40 mg PO DAILY levothyroxine 25 mcg Capsule 25 mcg PO DAILY aspirin [Aspir-81] 81 mg Tablet,Delayed Release (Dr/Ec) 162 mg PO DAILY Referrals / Follow Up: Félix Ray MD [Primary Care Provider] - Within 1 Week Disposition Disposition (needs filled in before D/C Order can be placed): Home, Self Care Charges/Coding Visit Charges Inpatient E&M: 20252 Disch Hosp
[2022-10-09 13:55] VITALS: BP 138/68; PULSE 72; RESP 18; TEMP 36.8; O2SAT 95
== END 2022-10-09 14:30 | disposition home or self-care (01) | DRG 149 ==
LOC: ED 22:42 → ICU 23:44 → MS3 23:50
PROVIDERS: Internal Medicine; Admitting Provider Internal Medicine; Emergency Provider Emergency Medicine; PCP Family Medicine; Visit Provider Internal Medicine
DX: R42 Dizziness and giddiness (principal); E03.9 Hypothyroidism, unspecified; I10 Essential (primary) hypertension; E78.00 Pure hypercholesterolemia, unspecified; F17.210 Nicotine dependence, cigarettes, uncomplicated; F41.9 Anxiety disorder, unspecified; F40.240 Claustrophobia; F32.A Depression, unspecified; Z79.82 Long term (current) use of aspirin; Z79.890 Hormone replacement therapy; Z79.899 Other long term (current) drug therapy
CPT/HCPCS: 36415; 70450; 70553; 71045; 80053; 81001; 83735; 84100; 84443; 84484; 85025; 85610; 93005; 97162; 97530; 99283; A9575; A4216

== ENCOUNTER 2022-11-02 13:00 | Outpatient (RCR) | payer MEDICARE, OTHER, SELFPAY ==
--- NOTE | 2022-10-15 07:57 | HP.PTEVAL_ITS ---
Patient's Visit Information BARBARA MI is a 77 year old F referred to Physical Therapy by Dr. Maki Anderson MD with a diagnosis of vertigo. Date of Evaluation: 10/15/22 Physical Therapist: Umesh Shea, MAURICE, OCS, CSCS - Visit Plan Frequency: 1-2x /Week Duration: 4-6 Weeks Plan: Positional treatments and monitor need for oculomotor/MSQ/balance - Subjective I spent last weekend in hospital with vertigo attack. Started tuesday a week ago out of nowhere. Bent down cleaning house and stood up and felt odd. Was spinning and fell BW. [place] bad for 5 days. had to move very slow after that and stopped bending over. On the fifth day looked up to get jug and it hit her again. Held door for dear life. Vomitted on island in kitchen. Lives with dtr and who were not home, staggered a little to sink and laid across kitchen sink. Staggered 10 feet to room, sat down until kids got home. Went to Er who did blood test and catscan which were clear, Given medicine to ease nausea. [place] better. Stayed the night and ruled out stroke. MRI was clear. Since then has not had spinning episodes, still does not feel normal and has to sit for a few minutes in the morning. Always sleeps on R side due to other issues. Gets a little fuzzy when she lies down. No other falls, no trouble getting around prior to this. feels normal sitting. - Objective Walks slowly but securely and I back to therapy, trasnfers slow but I. Steps with rail reciprocally. cervical aROM 40 rotation B and 40 extension without pain but hesitant to look up. - R HD. + L HD up torsional nystagmus, treated [facility] Nathalie. Walked out of therapy I and feeling Ok. - Balance/Special Test Scores Functional Gait Assessment Score: 23 % Disability: 23.3400 CATSIB Score (Max score 120 seconds): 97 Dizziness Score: 54 - Goals Goal 1:: abolish dizzyness Goal Time Frame: 2-4 Weeks Goal 2:: Pt feel 100% back to normal activities Goal Time Frame: 2-4 Weeks Goal 3:: DHI score 8 or less Goal Time Frame: 2-4 Weeks - Rehabilitation Potential Physical Therapy Diagnosis: BPPV L post canalithiasis Rehabilitation Potential: Good - Anticipated Interventions Patient/Client Instruction: Educate patient on: Condition, Plan of Care For the Purpose of:: To increase tolerance to activity/condition/position, To improve ability of physical actions for home/community/work/leisure Comment: positional and vestibular For the Purpose of:: To increase tolerance to activity/condition/position Thank you for the opportunity to evaluate your patient. For Medicare and Medicare HMO plans, please review the plan of care and approve it. It will need to be FAXED BACK to us at [phone] for Medicare purposes. For Medicare only, by signing this I certify the plan of care. Please let me know if there are questions or concerns regarding this plan of care. Physician Signature: Date:
--- NOTE | 2023-01-27 17:39 | HP.PT.NRP ---
BARBARA MI was seen in my office for initial evaluation on 10/15/22. The following Plan of Care was established for this patient: Initial Frequency: 1-2x /Week Initial Duration: 4-6 Weeks Patient/Client Instruction: Educate patient on: Condition, Plan of Care For the Purpose of:: To increase tolerance to activity/condition/position, To improve ability of physical actions for home/community/work/leisure For the Purpose of:: To increase tolerance to activity/condition/position This patient was last seen in our office 11/02/22. Pertinent comments regarding their Physical therapy will appear below: Pt seen 3 visits of POC and was 70% better. he did not schedule or attend his last visit. at this point, it has been over 2 months and I will discontinue due to nonattendance. At this point I will be discontinuing this patient from physical therapy. I would be happy to see this patient again in the future if found appropriate by the physician. Thank you! Umesh Shea, DPT, OCS, CSCS Balance/Gait/Functional tests - Balance/Special Test Scores Functional Gait Assessment Score: 26 % Disability: 13.3400 CATSIB Score (Max score 120 seconds): 97 Dizziness Score: 54
== END 2022-11-02 19:00 | disposition home or self-care (01) ==
LOC: PT 13:00
PROVIDERS: PCP Family Medicine; Referring Provider Internal Medicine; Visit Provider Internal Medicine
DX: R42 Dizziness and giddiness (principal)
CPT/HCPCS: 97161; 97530